=== PATIENT | male | born 1960 | race Caucasian/White ===

== ENCOUNTER 2019-07-22 18:17 | Inpatient (IN) | payer OTHER ==
[~2019-07-22] VITALS: Ht 167.6 cm; Wt 67.1 kg
--- NOTE | 2019-07-22 18:30 | NUR ---
SEEN AND EXAMINED BY .
--- NOTE | 2019-07-22 18:35 | NUR ---
IV LINE ESTABLISHED, BLOOD DRAWNED AND SENT TO LAB.
[2019-07-22 18:44] LABS: BASOPHILS # (AUTO) 0.1 /CMM (0.0-0.2); EOSINOPHILS % (AUTO) 17.2 % (0.0-6.0); HEMATOCRIT 32 % (39-51); HEMOGLOBIN 10.9 g/dL (13.5-17.5); LYMPHOCYTES # (AUTO) 0.6 /CMM (0.8-4.8); LYMPHOCYTES % (AUTO) 8.2 % (20.0-44.0); MEAN CORPUSCULAR HGB CONC 34 g/dl (31.0-36.0); MEAN CORPUSCULAR VOLUME 100 fL (80-96); MONOCYTES # (AUTO) 0.5 /CMM (0.1-1.30); MONOCYTES % (AUTO) 7.2 % (2.0-12.0); NEUTROPHILS # (AUTO) 4.8 /CMM (1.8-8.9); NEUTROPHILS % (AUTO) 66.4 % (43.0-81.0); PLATELET COUNT (AUTO) 182 /CMM (150-450); WHITE BLOOD COUNT (AUTO) 7.3 K/uL (4.3-11.0)
[2019-07-22] MEDS ORDERED: ACETAMINOPHEN ES 500 MG TABLET ONE (18:47)
[2019-07-22 18:55] LABS: CALCIUM, SERUM 6.9 mg/dL (8.5-10.1); CARBON DIOXIDE 23 mmol/L (21-32); CHLORIDE 90 mmol/L (98-107); CREATININE 1.1 mg/dL (0.6-1.3); GLUCOSE 105 mg/dL (74-106); POTASSIUM 3.7 mmol/L (3.5-5.1); SODIUM SERUM 125 mmol/L (136-145); UREA NITROGEN, BLOOD 11 mg/dL (7-18)
[2019-07-22] MEDS ORDERED: ACETAMINOPHEN ES 500 MG TABLET PO ONE (19:00)
[2019-07-22] MEDS ORDERED: IV NS 0.9% 1,000 ML BAG IV ONE (19:00)
[2019-07-22] MEDS ORDERED: VANCOMYCIN 1 GM in IV D5W 250 ML IV ONE (19:00)
[2019-07-22] MEDS ORDERED: PIPERACILLIN /TAZOBACTAM 3.375 G in IV D5W 50 ML IV ONE (19:00)
[2019-07-22 19:08] LABS: ALANINE AMINOTRANSFERASE 83 U/L (12-78); ALBUMIN 2.6 g/dL (3.4-5.0); ALCOHOL, BLOOD 4 mg/dL (0-0); ALKALINE PHOSPHATASE 110 U/L (46-116); ASPARTATE AMINOTRANSFERASE 294 U/L (15-37); B-TYPE NATRIURETIC PEPTIDE 1220 PG/ML (0-125); BILIRUBIN,DIRECT 0.3 mg/dL (0.0-0.2); BILIRUBIN,TOTAL 0.9 mg/dL (0.2-1.0); SALICYLATE 0.8 mg/dL (2.8-20.0)
[2019-07-22 19:09] LABS: ACETAMINOPHEN < 2 ug/ml (10-30)
--- NOTE | 2019-07-22 19:29 | NUR ---
PT STABLE, RR EVEN & UNLABORED. DENIES CP, SOB, DIZZINESS, N/V/D @ THIS TIME. WILL CONT TO MONITOR.
--- NOTE | 2019-07-22 21:16 | NUR ---
Patient is resting comfortably in bed with eyes closed. Easily aroused. VSS
--- NOTE | 2019-07-22 22:14 | NUR ---
REPORT GIVEN TO JOHANN AGUILERA FOR ELZA
[2019-07-22] MEDS ORDERED: FUROSEMIDE 40 MG/4 ML VIAL ONE (22:25)
[2019-07-22] MEDS ORDERED: FUROSEMIDE 20 MG/2 ML VIAL IV SCH ×2 (22:30→23:00)
[2019-07-22 22:38] VITALS: BP 137/88
[2019-07-22] MEDS ORDERED: ONDANSETRON HCL/PF 4 MG/2 ML VIAL IVP PRN (23:00)
[2019-07-22] MEDS ORDERED: ACETAMINOPHEN 325 MG TABLET PO PRN (23:00)
[2019-07-23] VITALS: BP 138/84
[2019-07-23] MEDS ORDERED: LORAZEPAM INJ 2 MG/ML VIAL IV PRN (00:30)
[2019-07-23] MEDS ORDERED: PIPERACILLIN /TAZOBACTAM 3.375 G VIAL IV ONE ×2 (00:45→05:42)
[2019-07-23 04:00] VITALS: BP 121/84
[2019-07-23 04:25] LABS: BASOPHILS # (AUTO) 0.1 /CMM (0.0-0.2); EOSINOPHILS % (AUTO) 14.4 % (0.0-6.0); HEMATOCRIT 36 % (39-51); HEMOGLOBIN 12.1 g/dL (13.5-17.5); LYMPHOCYTES # (AUTO) 0.7 /CMM (0.8-4.8); LYMPHOCYTES % (AUTO) 13.5 % (20.0-44.0); MEAN CORPUSCULAR HGB CONC 34 g/dl (31.0-36.0); MEAN CORPUSCULAR VOLUME 101 fL (80-96); MONOCYTES # (AUTO) 0.5 /CMM (0.1-1.30); MONOCYTES % (AUTO) 9.3 % (2.0-12.0); NEUTROPHILS # (AUTO) 3.2 /CMM (1.8-8.9); NEUTROPHILS % (AUTO) 61.8 % (43.0-81.0); PLATELET COUNT (AUTO) 183 /CMM (150-450); RED BLOOD CELL COUNT(AUTO) 3.53 MIL/uL (4.5-6.0); WHITE BLOOD COUNT (AUTO) 5.2 K/uL (4.3-11.0)
[2019-07-23 04:52] LABS: THYROID STIMULATING HORMONE 5.795 uIU/mL (0.358-3.74)
[2019-07-23 04:57] LABS: ALBUMIN 2.4 g/dL (3.4-5.0); BILIRUBIN,TOTAL 0.9 mg/dL (0.2-1.0); CALCIUM, SERUM 6.9 mg/dL (8.5-10.1); PHOSPHORUS 4.9 mg/dL (2.5-4.9); TOTAL PROTEIN, SERUM 5.7 g/dL (6.4-8.2)
--- NOTE | 2019-07-23 05:11 | NUR ---
telephone interviewer notes received pts from er ,pts is 59 y/o male a/o x3 ambulatory.able to make needs known , on tele sr on monitor , no sob no distress noted , sating 100% on r/a ,v/s stable afebrile. admission order noted and carried out , skin and body assessment done , admission routine care rendered , all needs attended too , call light within reach n, all due meds given as ordered . kept pts clean dry and comfortable.will continue tro monitor pts.
[2019-07-23 05:49] LABS: MAGNESIUM 0.9 mg/dL (1.8-2.4); POTASSIUM 2.8 mmol/L (3.5-5.1)
--- NOTE | 2019-07-23 06:00 | NUR ---
mental telepathist notes received critical lab result mag-0.9 forming operator ivy made aware with order noted and carried out , to give 4 grams of magnesium , mag ox 800 mg via po x1 and check magnesium level at 12noon, endorse to rn day shift for continuity of care.
[2019-07-23] MEDS: PIPERACILLIN /TAZOBACTAM 3.375 G in IV D5W 50 ML IV SCH ×5 (06:15→17:52)
[2019-07-23] MEDS ORDERED: MAGNESIUM OXIDE 400 MG TABLET PO ONE (06:30)
[2019-07-23] MEDS ORDERED: Magnesium 1GM/D5W 100ML PREMIX 100 ML IV SCH (07:00)
--- NOTE | 2019-07-23 07:00 | NUR ---
WHARF TENDER HEAD NOTE RECEIVED REPORT AT BEDSIDE. PT A/OX4. ON ROOM AIR. NO SIGN OF RESPIRATORY/CARDIAC DISTRESS OR SOB NOTED. RFA #18 PATENT, INTACT AND FLUSHED ELL. ON SALES REPRESENTATIVE SALES MANAGER SR WITH HR 67. SAFETY PRECAUTION IN PLACE. BED LOCKED AND AT THE LOWEST POSITION, BED ALARM ON, CALL LIGHT WITHIN REACH. WILL CONTINUE TO MONITOR CLOSELY.
[2019-07-23] MEDS ORDERED: FEE PK DOSING 1 MIN EA MC ONE (07:45)
[2019-07-23 07:59] LABS: OSMOLALITY,URINE 132 mOS/kg (340-1090)
[2019-07-23 08:00] VITALS: BP 116/71
[2019-07-23] MEDS: Magnesium 1GM/D5W 100ML PREMIX 100 ML IV SCH ×4 (08:00→13:04)
[2019-07-23 08:06] LABS: URINE SODIUM, RANDOM 48 mmol/l (40-220)
[2019-07-23 08:42] LABS: APPEARANCE,URINE CLEAR (CLEAR); BILIRUBIN,URINE NEGATIVE (NEGATIVE); BLOOD, URINE 3+ Ery/uL (NEGATIVE); KETONES,URINE NEGATIVE (NEGATIVE); LEUKOCYTE ESTERASE ,URINE NEGATIVE (NEGATIVE); NITRITE, URINE NEGATIVE (NEGATIVE); PROTEIN,URINE NEGATIVE (NEGATIVE); UGLUCOSE NEGATIVE (NEGATIVE); UROBILINOGEN,URINE 0.2 EU/dL (0.2)
[2019-07-23 08:47] LABS: COLOR,URINE STRAW (YELLOW)
[2019-07-23] MEDS: POTASSIUM CL. PREMIX PERIPHER. 50 ML IV SCH ×4 (08:59→13:03)
[2019-07-23] MEDS ORDERED: PANTOPRAZOLE 40 MG VIAL IV SCH (09:00)
[2019-07-23 09:45] LABS: BACTERIA,URINE Rare /HPF (None Seen); SQUAMOUS EPITHELIAL CELL,UR Rare /HPF (None Seen); WBC,URINE 0-2 /HPF (0-3)
[2019-07-23] MEDS: VANCOMYCIN 0.75 GM in IV D5W 250 ML IV SCH ×3 (10:00→23:27)
--- NOTE | 2019-07-23 10:08 | NUR ---
PUBLIC HEALTH POLICY ANALYST NOTE [employer] SECURITY CONSULTANT AT BEDSIDE AND TALKED TO THE PT. PER [employer] SECURITY CONSULTANT PATIENT IS NOT HOMELESS. HE LIVES WITH HIS IN A BACK HOUSE.
[2019-07-23] MEDS: ASPIRIN 81 MG TAB.CHEW PO SCH (10:09)
[2019-07-23] MEDS: PANTOPRAZOLE 40 MG TABLET.DR PO SCH (10:09)
[2019-07-23] MEDS: FUROSEMIDE 20 MG/2 ML VIAL IV SCH ×2 (10:10→16:17)
--- NOTE | 2019-07-23 11:03 | NUR ---
Social service consult requested by ENMAElmer Montague for possible homelessness and ETOH. Pt. is a 59 year old male who was admitted to [facility] for CHF exacerbation. SW met with pt. bedside. Pt. is alert and oriented x 4. Pt. appears disheveled. Pt's mood is congruent. Pt. states he lives with his in a back house located at [address] [place] [address] in [place]. [place]. Pt. is an alcoholic but states he hasn't drank in a few days. Pt's alcohol of choice is Tequila. Pt. stated he usually drinks a couple of shots of Tequila daily and has been for the past 3 years. Pt. has no prior history of attending an alcohol treatment program or AA. Pt. declined when asked if he would like to go to an alcohol treatment program. Pt. did accept the following referrals to alcohol treatment programs: [facility], ; [facility] and [facility] . GABRIELLE updated pt' s RN and NORMA Vega regarding pt. stating he is not homeless. No other social service needs are requested at this time. SW is available, if needed.
[2019-07-23 16:00] VITALS: BP 115/68
--- NOTE | 2019-07-23 18:51 | NUR ---
Met with patient, he is alert and pleasant. States he lives with his a back house located at [address] [place] [address] in [facility].He is ambulatory and independent with adl's.. He works as a carpenter's helper and landscaping. His pcp is at [facility]. He might need assistance with transportation to go home. Addendum: 07/23/19 at 1852 by DIONY GARCIA RN Amended: Links added.
--- NOTE | 2019-07-23 19:05 | NUR ---
MS RN NOTE PT SITTING AT BED COMFORTABLY. ON ROOM AIR SATURATING WELL. NO SIGN OF RESPIRATORY DISTRESS OR SOB AT THIS TIME. ALL NEEDS ATTENDANT. TWO FAMILY MEMBER AT BEDSIDE EARLIER. SAFETY PRECAUTION IN PLACE. BED LOCKED AND AT THE LOWEST POSITION, BED ALARM ON, CALL LIGHT WITHIN REACH. WILL ENDORSE TO THE PM NURSE FOR ELZA.
--- NOTE | 2019-07-23 19:20 | NUR ---
MS RN NOTE PATIENT REPORT GIVEN BEDSIDE, RN INTRODUCED TO PATIENT, GOALS FOR SHIFT DISCUSSED. PATIENT COMPLIANT AND AMIABLE. PATIENT A/O X 4 NO S/S DISTRESS. BREATHING EVEN AND UNLABORED. IV SITE PATENT AND INTACT NO S/S OF INFECTION AND INFILTRATION. BED IN LOWEST LOCKED POSITION, SAFETY PRECAUTIONS IN PLACE CALL LIGHT WITHIN REACH. PATIENT ABLE TO VERBALIZE USE OF CALL LIGHT. RN WILL CONTINUE TO MONITOR FOR CHANGES.
[2019-07-24] VITALS: BP 112/66
[2019-07-24] MEDS: PIPERACILLIN /TAZOBACTAM 3.375 G in IV D5W 50 ML IV SCH ×3 (00:37→11:02)
--- NOTE | 2019-07-24 06:00 | NUR ---
MS RN NOTE PATIENT 18 G RFA NO LONGER INTACT PLACED NEW 20 G IN RFA. PATENT NO S/S OF INFILTRATION.
--- NOTE | 2019-07-24 07:05 | NUR ---
RN NOTES RECEIVED PT ON BED, A/Ox4, CYPRIOT SPEAKING, ON RA , RESPIRATION EVEN AND UNLABORED, NO SOB NOTED, R FA IV SITE , CLEAN, DRY AND INTACT, SR UP x3, CALL LIGHT WITHIN EASY REACH, BED LOCKED AND IN LOWEST POSITION, CONTINUE TO MONITOR .
[2019-07-24 07:08] LABS: CALCIUM, SERUM 7.3 mg/dL (8.5-10.1); CREATININE 0.8 mg/dL (0.6-1.3); MAGNESIUM 1.8 mg/dL (1.8-2.4); PHOSPHORUS 3.4 mg/dL (2.5-4.9); POTASSIUM 2.9 mmol/L (3.5-5.1)
[2019-07-24 07:17] LABS: THYROID STIMULATING HORMONE 5.916 uIU/mL (0.358-3.74); URIC ACID 3.3 mg/dL (2.6-7.2)
--- NOTE | 2019-07-24 07:28 | NUR ---
MS RN NOTE NO ACUTE CHANGES THROUGH THE NIGHT. PATIENT TOLERATED WELL. NO S/S OF ACUTE DISTRESS NOTED. IV STILL PATENT AND INTACT INFUSING ABX. PATIENT BREATHING EVEN AND UNLABORED DENIES CHEST PAIN. ENDORSED POC TO AM FOR ELZA.
[2019-07-24 08:00] VITALS: BP 138/72
[2019-07-24] MEDS: ASPIRIN 81 MG TAB.CHEW PO SCH (08:19)
[2019-07-24] MEDS: PANTOPRAZOLE 40 MG TABLET.DR PO SCH (08:19)
[2019-07-24] MEDS: VANCOMYCIN 0.75 GM in IV D5W 250 ML IV SCH (08:20)
[2019-07-24] MEDS: FUROSEMIDE 20 MG/2 ML VIAL IV SCH (08:20)
--- NOTE | 2019-07-24 10:30 | NUR ---
RN NOTES LELA [employer]SE [employer] AND [employer]ARM[employer]Y NOITFED REGARDING K=2.9. NEW ORDER RECEIVED , CONTINUE TO MONITOR .
[2019-07-24] MEDS: POTASSIUM CHLORIDE 20 MEQ TAB.PRT.SR PO SCH ×3 (11:02→13:06)
[2019-07-24] MEDS ORDERED: ASPI-1169 PO (12:20)
[2019-07-24] MEDS ORDERED: FURO-145 PO (12:20)
[2019-07-24] MEDS ORDERED: LEVO500T75 PO (12:20)
--- NOTE | 2019-07-24 13:46 | NUR ---
RN NOTES DISCHARGE INSTRUCTION GIVEN TO PT AND ALSO HIS OVER THE PHONE.
--- NOTE | 2019-07-24 14:00 | NUR ---
RN NOTES PT'S STATED SHE WILL SENT [facility] TO PICK HIM UP AROUND 4PM TO GO HOME .
--- NOTE | 2019-07-24 14:10 | NUR ---
RN NOTES PT TOOK OUT HIS OWN H/D . DRESSING APPLIED TO THE SITE .
[2019-07-24 16:00] VITALS: BP 143/78
--- NOTE | 2019-07-24 16:10 | NUR ---
RN NOTES NO [facility] ARRIVED YET , MADE CALL TO PT'S , NO ANSWER AT THIS TIME,
--- NOTE | 2019-07-24 16:35 | NUR ---
RN NOTES PT LEFT THE FLOOR AMBULATORY, ACCOMPANIED BY STAFF MEMBER TO MAIN ENTRANCE. PT DISCHARGED HOME BY [facility] AND ACCOMPANIED BY HIS IN STABLE CONDITION .
[2019-07-24] MEDS ORDERED: LACTOBACILLUS RHAMNOSUS GG 1 EACH CAP.SPRINK PO SCH (17:00)
[2019-07-26 07:09] LABS: T3, FREE 3.3 pg/mL (2.0-4.4)
== END 2019-07-24 16:35 | disposition home or self-care (01) | DRG 720 ==
LOC: ER 18:25 → TELE1 21:47 → MEDSG1 07-23 11:04
PROVIDERS: ADMIT Registered Nurse; ATTEND Nurse Practitioner Acute Care
DX: A41.9 Sepsis, unspecified organism (principal); I50.33 Acute on chronic diastolic (congestive) heart failure; E44.0 Moderate protein-calorie malnutrition; G92 Toxic encephalopathy; K70.10 Alcoholic hepatitis without ascites; I11.0 Hypertensive heart disease with heart failure; J15.9 Unspecified bacterial pneumonia; E87.1 Hypo-osmolality and hyponatremia; E83.42 Hypomagnesemia; E83.51 Hypocalcemia; F10.10 Alcohol abuse, uncomplicated; D64.9 Anemia, unspecified; R74.0 Nonspecific elevation of levels of transaminase and lactic acid dehydrogenase [LDH]; Z73.6 Limitation of activities due to disability; E88.09 Other disorders of plasma-protein metabolism, not elsewhere classified; Z68.23 Body mass index [BMI] 23.0-23.9, adult; E86.1 Hypovolemia; R65.20 Severe sepsis without septic shock
CPT/HCPCS: 36415; 71045-TC; 80048-TC; 80053-TC; 80061-TC; 80076-TC; 80305; 81000-TC; 83605-TC; 83735-TC; 83880; 83935-TC; 84100-TC; 84300-TC; 84439-TC; 84443-TC; 84481; 84484-TC; 84550-TC; 85025-TC; 85730-TC; 86706; 86803; 87040-TC; 87081-TC; 87086-TC; 87340; 93307-TC; 93971-TC; C9113; G0378; G0480; J1940; J2543; J3370; J3475; J3480; J7030; J7050; J7060

== ENCOUNTER 2024-11-18 14:30 | Emergency (ER) | payer OTHER ==
[~2024-11-18] VITALS: Ht 157.5 cm; Wt 70.3 kg
[~2024-11-18 14:30] MED LIST: ASPI-1169 PO; FURO-145 PO; LEVO500T23 PO
[2024-11-18 14:52] VITALS: TEMP 98.6
[2024-11-18 15:11] LABS: BASOPHILS % (AUTO) 0.4 % (0.0-2.0); HEMATOCRIT 28 % (39-51); HEMOGLOBIN 9.6 g/dL (13.5-17.5); LYMPHOCYTES # (AUTO) 1.2 K/uL (0.8-4.8); LYMPHOCYTES % (AUTO) 13.8 % (20.0-44.0); MEAN CORPUSCULAR HEMOGLOBIN 31 PG (26.0-33.0); MEAN CORPUSCULAR HGB CONC 34 g/dl (31.0-36.0); MEAN CORPUSCULAR VOLUME 90 fL (80-96); MONOCYTES # (AUTO) 0.4 K/uL (0.1-1.30); MONOCYTES % (AUTO) 4.9 % (2.0-12.0); NEUTROPHILS % (AUTO) 68.9 % (43.0-81.0); PLATELET COUNT (AUTO) 200 K/uL (150-450); RED BLOOD CELL COUNT(AUTO) 3.12 MIL/uL (4.5-6.0); RED CELL DISTRIBUTION WIDTH 13.9 % (11.5-15.0); WHITE BLOOD COUNT (AUTO) 8.8 K/uL (4.3-11.0)
[2024-11-18 15:24] LABS: CARBON DIOXIDE 22 mmol/L (21-32); CREATININE 1.6 mg/dL (0.6-1.3); GLUCOSE 97 mg/dL (74-106); UREA NITROGEN, BLOOD 10 mg/dL (7-18)
[2024-11-18 15:37] LABS: APPEARANCE,URINE CLEAR (CLEAR); BILIRUBIN,URINE NEGATIVE (NEGATIVE); BLOOD, URINE TRACE-INTA Ery/uL (NEGATIVE); COLOR,URINE YELLOW (YELLOW); KETONES,URINE NEGATIVE (NEGATIVE); LEUKOCYTE ESTERASE ,URINE NEGATIVE (NEGATIVE); NITRITE, URINE NEGATIVE (NEGATIVE); PH,URINE 5.5 (5.0-8.0); PROTEIN,URINE NEGATIVE (NEGATIVE); UGLUCOSE NEGATIVE (NEGATIVE); UROBILINOGEN,URINE 0.2 EU/dL (0.2)
[2024-11-18 15:53] LABS: AMPHETAMINE, URINE NEGATIVE (NEGATIVE); BARBITURATE, URINE NEGATIVE (NEGATIVE); BENZODIAZEPINE, URINE NEGATIVE (NEGATIVE); CANNABINOID, URINE NEGATIVE (NEGATIVE); COCCAINE, URINE NEGATIVE (NEGATIVE); OPIATE, URINE NEGATIVE (NEGATIVE); PHENCYCLIDINE SCREEN,URINE NEGATIVE (NEGATIVE)
[2024-11-18 15:54] LABS: ALANINE AMINOTRANSFERASE 10 U/L (12-78); ALBUMIN 1.9 g/dL (3.4-5.0); ALCOHOL, BLOOD 255 mg/dL (0-10); ALKALINE PHOSPHATASE 90 U/L (46-116); ASPARTATE AMINOTRANSFERASE 25 U/L (15-37); BILIRUBIN,DIRECT 0.2 mg/dL (0.0-0.2); BILIRUBIN,TOTAL 0.3 mg/dL (0.2-1.0); CALCIUM, SERUM 7.1 mg/dL (8.5-10.1); CHLORIDE 98 mmol/L (98-107); SODIUM SERUM 135 mmol/L (136-145); TOTAL PROTEIN, SERUM 8.3 g/dL (6.4-8.2)
[2024-11-18 15:58] LABS: SALICYLATE 1.2 mg/dL (2.8-20.0)
[2024-11-18 15:59] LABS: POTASSIUM 2.6 mmol/L (3.5-5.1)
[2024-11-18 16:00] LABS: ACETAMINOPHEN <10 ug/ml (10-30)
[2024-11-18 16:20] LABS: ADD URINE CULTURE NO; BACTERIA,URINE Few /HPF (None Seen); RBC,URINE 0-2 /HPF (0-2); SQUAMOUS EPITHELIAL CELL,UR Rare /HPF (None Seen); WBC,URINE 0-2 /HPF (0-3)
[2024-11-18] MEDS ORDERED: POTASSIUM CHLORIDE 20 MEQ TAB.PRT.SR PO ONE (16:52)
[2024-11-18] MEDS: POTASSIUM CHLORIDE 20 MEQ TAB.PRT.SR PO ONE (17:29)
[2024-11-18] MEDS: IV NS 0.9% 1,000 ML BAG IV ONE (17:29)
[2024-11-18 18:40] LABS: CALCIUM, SERUM 7.3 mg/dL (8.5-10.1); CREATININE 1.5 mg/dL (0.6-1.3); POTASSIUM 3.2 mmol/L (3.5-5.1)
[2024-11-18 19:43] VITALS: BP 129/69; O2SAT 100
== END 2024-11-18 19:58 | disposition home or self-care (01) ==
LOC: ER 14:36
DX: E86.0 Dehydration (principal); I10 Essential (primary) hypertension; E87.6 Hypokalemia; F10.129 Alcohol abuse with intoxication, unspecified; Y90.9 Presence of alcohol in blood, level not specified; Z20.822 Contact with and (suspected) exposure to COVID-19; Z79.899 Other long term (current) drug therapy; Z79.82 Long term (current) use of aspirin
CPT/HCPCS: 99283; 96360; 85025; 80048 ×2; 80076; 81001; 36415; 87426; 80143; 80320; 80307; J7030; J7040; A6403; G0480